=== PATIENT | male | born 1980 | race Caucasian/White ===

== ENCOUNTER 2017-08-09 06:33 | Day surgery (SDC) | payer BC ==
[~2017-08-09 06:33] MED LIST: Lactated Ringers 1,000 ML IV SCH; ceFAZolin 2 GM in Premix Bag 1 BAG IV SCH
[2017-08-09] MEDS ORDERED: Ondansetron 4 MG/2 ML SDV ONE (07:06)
[2017-08-09] MEDS ORDERED: Lidocaine 2% 5 ML SDV ONE (07:06)
[2017-08-09] MEDS ORDERED: Propofol 200 MG/20 ML SDV ONE (07:06)
[2017-08-09] MEDS ORDERED: fentaNYL 250 MCG/5 ML SDV ONE (07:07)
[2017-08-09] MEDS ORDERED: Midazolam 1 MG/ML 2 ML SDV ONE (07:07)
--- NOTE | 2017-08-09 07:18 | PCM.PREANE ---
Preanesthetic Assessment - Anesthesia/Transfusion/Family Hx Anesthesia History: Prior Anesthesia Without Reaction Family History of Anesthesia Reaction: No Transfusion History: No Prior Transfusion(s) - Review of Systems General: No Symptoms Pulmonary: No Symptoms Cardiovascular: No Symptoms Gastrointestinal: No Symptoms Neurological: No Symptoms Other: Reports: None - Physical Assessment NPO Status Date: 08/08/17 O2 Sat by Pulse Oximetry: 97 Respiratory Rate: 16 Vital Signs: Last Vital Signs Temp 36.2 C 08/09/17 06:42 Pulse 79 08/09/17 06:42 Resp 16 08/09/17 06:42 BP 141/82 H 08/09/17 06:42 Pulse Ox 97 08/09/17 06:42 Height: 1.78 m Weight: 79.379 kg ASA Class: 1 Mental Status: Alert & Oriented x3 Airway Class: Mallampati = 1 Dentition: Reports: Normal Dentition ROM/Head Extension: Full Lungs: Clear to Auscultation, Normal Respiratory Effort Cardiovascular: Regular Rate, Regular Rhythm - Allergies Allergies/Adverse Reactions: Allergies Allergy/AdvReac Type Severity Reaction Status Date / Time bee venom protein (honey bee) Allergy Other Verified 08/05/17 10:19 - Acknowledgements Anesthesia Type Planned: General Anesthesia Pt an Appropriate Candidate for the Planned Anesthesia: Yes Alternatives and Risks of Anesthesia Discussed w Pt/Guardian: Yes Pt/Guardian Understands and Agrees with Anesthesia Plan: Yes PreAnesthesia Questionnaire - Past Health History Medical/Surgical History: Denies Medical/Surgical History Other HEENT History: wears glasses Gastrointestinal History: Reports: GERD - Past Surgical History HEENT Surgical History: Reports: Oral Surgery Other HEENT Surgeries/Procedures: wisdom teeth removed - SUBSTANCE USE Smoking Status *Q: Never Smoker Days Per Week of Alcohol Use: 2 Number of Drinks Per Day: 2 Total Drinks Per Week: 4 Recreational Drug Use History: No - HOME MEDS Home Medications: Home Meds EPINEPHrine [Epipen 2-Ben] 1 dose IM ASDIRECTED PRN 08/05/17 [History] Famotidine [Pepcid] 20 - 40 mg PO DAILY PRN 08/05/17 [History] Ibuprofen 8,020 mg PO Q6H PRN 08/05/17 [History] - CURRENT (IN HOUSE) MEDS Current Meds: Current Medications Hydrocodone Bitart/Acetaminophen ([place] 325-5 Mg) 1 - 2 tab PO Q4H PRN PRN Reason: Pain Cefazolin Sodium/Dextrose 2 gm (/ Premix) 50 mls @ 100 mls/hr IV ONCALL [facility] Lactated Ringer's (Ringers, Lactated) 1,000 mls @ 100 mls/hr IV ASDIRECTED [facility] Last Admin: 08/09/17 07:00 Dose: 100 mls/hr Discontinued Medications Fentanyl (Sublimaze) Confirm Administered Dose 250 mcg .ROUTE .STK-MED ONE Stop: 08/09/17 07:08 Lidocaine (Xylocaine-Mpf 2%) Confirm Administered Dose 5 ml .ROUTE .STK-MED ONE Stop: 08/09/17 07:07 Midazolam HCl (Versed 1 Mg/Ml) Confirm Administered Dose 2 mg .ROUTE .STK-MED ONE Stop: 08/09/17 07:08 Ondansetron HCl (Zofran) Confirm Administered Dose 4 mg .ROUTE .STK-MED ONE Stop: 08/09/17 07:07 Propofol (Diprivan 20 Ml) Confirm Administered Dose 200 mg .ROUTE .STK-MED ONE Stop: 08/09/17 07:07
[2017-08-09] MEDS ORDERED: ceFAZolin 1 GM Vial ONE (07:22)
[2017-08-09] MEDS ORDERED: Sodium Chloride 0.9% 20 ML ONE (07:22)
[2017-08-09] MEDS ORDERED: Lidocaine 1% 20 ML MDV ONE (07:37)
[2017-08-09] MEDS ORDERED: Acetaminophen/HYDROcodone 325-5 MG Tab PO PRN (08:00)
[2017-08-09] MEDS ORDERED: Dexamethasone 4 MG/ML 5 ML MDV ONE (08:31)
[2017-08-09] MEDS ORDERED: Ketorolac 30 MG/ML SDV ONE (08:38)
[2017-08-09] MEDS ORDERED: fentaNYL 100 MCG/2 ML SDV IVPUSH PRN (08:43)
--- NOTE | 2017-08-09 08:58 | PCM.OPNOTE ---
- General Post-Op/Procedure Note Date of Surgery/Procedure: 08/09/17 Operative Procedure(s): R knee scope with chondroplasty of PFJ Post-Op Diagnosis: R knee DJD Anesthesia Technique: General LMA Primary Surgeon: Theresa Bundy Supervisor [employer] Placing: Hoem Cowan in mLs: 5 Condition: Good Free Text/Narrative:: tt=15 min #[id number]
--- NOTE | 2017-08-09 09:46 | PCM.POSTAN ---
POST ANESTHESIA ASSESSMENT - MENTAL STATUS Mental Status: Alert, Oriented - RESPIRATORY Respiratory Status: Respiratory Rate WNL, Airway Patent, O2 Saturation Stable - CARDIOVASCULAR CV Status: Pulse Rate WNL, Blood Pressure Stable - GASTROINTESTINAL GI Status: No Symptoms - POST OP HYDRATION Hydration Status: Adequate & Stable
[2017-08-09 10:16] VITALS: BP 124/78
--- NOTE | 2017-08-09 11:07 | PCM48HPAN ---
Post Anesthesia Note - EVALUATION WITHIN 48HRS OF ANESTHETIC Vital Signs in Normal Range: Yes Patient Participated in Evaluation: Yes Respiratory Function Stable: Yes Airway Patent: Yes Cardiovascular Function Stable: Yes Hydration Status Stable: Yes Pain Control Satisfactory: Yes Nausea and Vomiting Control Satisfactory: Yes Mental Status Recovered: Yes
--- NOTE | 2017-08-09 14:41 | OR ---
SURGEON: Theresa Bundy MD DATE OF PROCEDURE: 08/09/2017 PREOPERATIVE DIAGNOSIS: Right knee pain. POSTOPERATIVE DIAGNOSIS: Degenerative joint disease, right knee. PROCEDURE PERFORMED: Right knee arthroscopy with chondroplasty of the patellofemoral joint. [employer] MECH[employer]IC: Home Cowan PA-C. ANESTHESIA: General. ESTIMATED BLOOD LOSS: 5 mL. TOURNIQUET TIME: 15 minutes. COMPLICATIONS: None. DVT PROPHYLAXIS: Not indicated. IMPLANTS USED: None. BRIEF HISTORY: Brice is a 37-year-old male, who has had complaint of progressive right knee pain. He cannot recall a specific injury. He did respond to a diagnostic/therapeutic injection which gave him good short-term relief. His pain has since recurred. Due to his lack of response to conservative treatment, I did recommend surgical intervention. The risks and goals of procedure were discussed with the patient and were documented preoperatively. He agreed to proceed. DESCRIPTION OF PROCEDURE: The patient was properly identified and brought to the operating room. He was transferred from the OR cart and placed on the operating room table in supine position. General anesthesia was administered. After adequate anesthesia was obtained, a well-padded tourniquet was applied to the right lower extremity. The right lower extremity was then prepped in standard fashion using ChloraPrep solution. It was then sterilely draped. A time-out was performed to ensure correct site and procedure. Preoperative antibiotics were given. The surgical site had been marked preoperatively. An Esmarch was used to exsanguinate the right lower extremity and the tourniquet was inflated to 250 mmHg. A lateral portal arthrotomy was established. Blunt trocar and cannula were introduced into the suprapatellar pouch. Camera, inflow, and outflow were assembled. The suprapatellar pouch showed no signs of synovitis. The patellofemoral joint was visualized. He had a linear fissure that appeared to be central on the patella. The trochlea was also inspected, which showed a similar linear finding. The patella appeared to track centrally. I then extended down the lateral and medial gutter. No loose bodies were identified. I then entered the medial compartment. A medial portal arthrotomy was established. A blunt probe was inserted. The meniscus was extensively probed. It was found to be stable. The joint surfaces showed grade 1 chondromalacia along the medial tibial plateau. No degenerative findings were noted along the medial femoral condyle. I then entered the notch. Both the ACL and PCL were visualized and probed and found to be intact. I finally entered the lateral compartment. The lateral tibial plateau showed some softening consistent with grade 1 chondromalacia. The lateral femoral condyle showed no degenerative findings. The meniscus was extensively probed and found to be stable. I then re-entered the patellofemoral joint. The fissure was probed on the undersurface of the patella. It appeared to be loose. A 4.0 mm shaver was then used to gently debride the fissure to a stable remnant. It was again probed and found to be stable. The trochlea was also inspected. There was a small loose flap distally along the trochlea. This was also debrided to a stable remnant. Instruments were then removed from the knee. The portal sites were closed with 3-0 nylon. Lidocaine 1% was injected along the portal tracts. Xeroform gauze was placed over the wound and a bulky dressing was applied. The tourniquet was then deflated. He was awakened from his anesthetic and transferred back to the operating room cart. He was brought to recovery room in stable condition. All needle and sponge counts were correct. Prior to performing the surgery, I did obtain a knee aspirate. Betadine swabs were used to prep an area over the superolateral aspect of the patella. A 19- gauge needle was then introduced into the knee joint. I was able to aspirate approximately 2 mL of straw-colored fluid. I did insert additional sterile saline and this was again aspirated. There was no evidence of infection clinically or by the appearance of the synovial fluid. The synovial fluid was sent for cell count and crystals. KALI / DARWIN /[id number]
== END 2017-08-09 10:33 | disposition home or self-care (01) ==
LOC: MW.SDS 06:33
PROVIDERS: ATTEND Orthopaedic Surgery
DX: M22.41 Chondromalacia patellae, right knee (principal); M17.11 Unilateral primary osteoarthritis, right knee; Z91.030 Bee allergy status; Z98.890 Other specified postprocedural states
CPT/HCPCS: 29877; 88304; 89050; 89060; J0690; J1100; J1885; J2250; J2405; J3010; J7120; 01400; J2704

== ENCOUNTER 2018-01-26 12:46 | Day surgery (SDC) | payer BC ==
[~2018-01-26 12:46] MED LIST changes: +Sodium Chloride 0.9% 10 ML Syringe FLUSH PRN; +Sodium Chloride 0.9% 2.5 ML Syringe FLUSH PRN; -ceFAZolin 2 GM in Premix Bag 1 BAG IV SCH
[2018-01-26] MEDS ORDERED: fentaNYL 100 MCG/2 ML SDV ONE (13:26)
[2018-01-26] MEDS ORDERED: Midazolam 1 MG/ML 2 ML SDV ONE (13:26)
[2018-01-26] MEDS ORDERED: Propofol 200 MG/20 ML SDV ONE (13:26)
[2018-01-26] MEDS ORDERED: Lidocaine 2% 5 ML SDV ONE (13:26)
--- NOTE | 2018-01-26 14:09 | PCM.PREANE ---
Preanesthetic Assessment - Procedure Proposed Procedure: EGD with Bx - Anesthesia/Transfusion/Family Hx Anesthesia History: Prior Anesthesia Without Reaction Family History of Anesthesia Reaction: No Transfusion History: No Prior Transfusion(s) Intubation History: Unknown - Review of Systems General: No Symptoms Pulmonary: No Symptoms Cardiovascular: No Symptoms Gastrointestinal: Other (GERD) Neurological: No Symptoms Other: Reports: None - Physical Assessment NPO Status Date: 01/26/18 NPO Status Time: 07:00 O2 Sat by Pulse Oximetry: 99 Respiratory Rate: 16 Vital Signs: Last Vital Signs Temp 97.7 F 01/26/18 13:19 Pulse 63 01/26/18 13:19 Resp 16 01/26/18 13:19 BP 140/85 01/26/18 13:19 Pulse Ox 99 01/26/18 13:19 Height: 5 ft 10 in Weight: 175 lb ASA Class: 2 Mental Status: Alert & Oriented x3 Airway Class: Mallampati = 2 Dentition: Reports: Normal Dentition Thyro-Mental Finger Breadths: 3 Mouth Opening Finger Breadths: 3 ROM/Head Extension: Full Lungs: Clear to Auscultation, Normal Respiratory Effort Cardiovascular: Regular Rate, Regular Rhythm - Allergies Allergies/Adverse Reactions: Allergies Allergy/AdvReac Type Severity Reaction Status Date / Time bee venom protein (honey bee) Allergy Other Verified 01/24/18 08:46 - Blood Blood Available: No Product(s) Available: None - Anesthesia Plan Free Text/Narrative:: MAC Pre-Op Medication Ordered: None - Acknowledgements Anesthesia Type Planned: MAC Pt an Appropriate Candidate for the Planned Anesthesia: Yes Alternatives and Risks of Anesthesia Discussed w Pt/Guardian: Yes Pt/Guardian Understands and Agrees with Anesthesia Plan: Yes PreAnesthesia Questionnaire - Past Health History Medical/Surgical History: Denies Medical/Surgical History Other HEENT History: wears glasses/contacts Cardiovascular History: Reports: Other (See Below) Other Cardiovascular History: takes Ramapril for "pre-hypertension" - EKG with slight L ventricular hypertrophy Gastrointestinal History: Reports: GERD Neurological History: Reports: Other (See Below) Other Neuro History: hx of motion sickness - Past Surgical History HEENT Surgical History: Reports: Oral Surgery Other HEENT Surgeries/Procedures: wisdom teeth Musculoskeletal Surgical History: Reports: Arthroscopic Knee - SUBSTANCE USE Smoking Status *Q: Never Smoker Days Per Week of Alcohol Use: 2 Number of Drinks Per Day: 2 Total Drinks Per Week: 4 Recreational Drug Use History: No - HOME MEDS Home Medications: Home Meds EPINEPHrine [Epipen 2-Ben] 1 dose IM ASDIRECTED PRN 08/05/17 [History] Ibuprofen 800 mg PO Q6H PRN 08/05/17 [History] Pantoprazole Sodium 40 mg PO DAILY 01/24/18 [History] Ramipril 2.5 mg PO DAILY 01/24/18 [History] Sucralfate 1 gm PO QID 01/24/18 [History] - CURRENT (IN HOUSE) MEDS Current Meds: Current Medications Lactated Ringer's (Ringers, Lactated) 1,000 mls @ 125 mls/hr IV ASDIRECTED [facility] Last Admin: 01/26/18 13:20 Dose: 125 mls/hr Sodium Chloride (Saline Flush) 10 ml FLUSH ASDIRECTED PRN PRN Reason: Keep Vein Open Sodium Chloride (Saline Flush) 2.5 ml FLUSH ASDIRECTED PRN PRN Reason: Keep Vein Open Sodium Chloride (Saline Flush) 10 ml FLUSH ASDIRECTED PRN PRN Reason: Keep Vein Open Sodium Chloride (Saline Flush) 2.5 ml FLUSH ASDIRECTED PRN PRN Reason: Keep Vein Open Discontinued Medications Fentanyl (Sublimaze) Confirm Administered Dose 100 mcg .ROUTE .STK-MED ONE Stop: 01/26/18 13:27 Lidocaine (Xylocaine-Mpf 2%) Confirm Administered Dose 5 ml .ROUTE .STK-MED ONE Stop: 01/26/18 13:27 Midazolam HCl (Versed 1 Mg/Ml) Confirm Administered Dose 2 mg .ROUTE .STK-MED ONE Stop: 01/26/18 13:27 Propofol (Diprivan 20 Ml) Confirm Administered Dose 400 mg .ROUTE .STK-MED ONE Stop: 01/26/18 13:27
--- NOTE | 2018-01-26 14:50 | PCM.POSTAN ---
POST ANESTHESIA ASSESSMENT - MENTAL STATUS Mental Status: Alert, Oriented - VITAL SIGNS Pulse Rate: 83 SaO2: 96 Resp Rate: 14 Blood Pressure: 115/64 - RESPIRATORY Respiratory Status: Respiratory Rate WNL, Airway Patent, O2 Saturation Stable - CARDIOVASCULAR CV Status: Pulse Rate WNL, Blood Pressure Stable - GASTROINTESTINAL GI Status: No Symptoms - PAIN Pain Score: 0 - POST OP HYDRATION Hydration Status: Adequate & Stable - OBSERVATIONS Free Text/Narrative:: Pt awake and stable with no reported pain or nausea.
--- NOTE | 2018-01-26 15:01 | PCM.OPNOTE ---
- General Post-Op/Procedure Note Date of Surgery/Procedure: 01/26/18 Operative Procedure(s): Diagnostic EGD and biopsy Findings: Plaque like fundus lesion along greater curvature. Hyperplastic polyps in body and fundus. Pre Op Diagnosis: Heartburn Post-Op Diagnosis: Hyperplastic gastric polyps, fundus lesion Anesthesia Technique: [facility] Primary Surgeon: Sandra Lowry Condition: Good Free Text/Narrative:: Intake & Output 01/26/18 01/26/18 01/26/18 06:59 14:59 22:59 Intake Total 900 Balance 900
--- NOTE | 2018-01-26 15:09 | PCM48HPAN ---
Post Anesthesia Note - EVALUATION WITHIN 48HRS OF ANESTHETIC Vital Signs in Normal Range: Yes Patient Participated in Evaluation: Yes Respiratory Function Stable: Yes Airway Patent: Yes Cardiovascular Function Stable: Yes Hydration Status Stable: Yes Pain Control Satisfactory: Yes Nausea and Vomiting Control Satisfactory: Yes Mental Status Recovered: Yes Pulse Rate: 83 Resp Rate: 10 Blood Pressure: 115/64
[2018-01-26 15:15] VITALS: BP 137/77
--- NOTE | 2018-01-26 16:36 | OR ---
SURGEON: TORI RONDON MD DATE OF PROCEDURE: 01/26/2018 PREOPERATIVE DIAGNOSIS: Heartburn. POSTOPERATIVE DIAGNOSES: 1. Hyperplastic polyps of the stomach. 2. Lesion of gastric fundus. PROCEDURE PERFORMED: Diagnostic EGD with biopsies. ANESTHESIA: MAC. EXTENT OF EXAM: To the second portion of duodenum. INSTRUMENT USED: Olympus endoscope. PREPARATION: Good. LIMITATIONS: None. INDICATION: The patient is a 38-year-old male, who suffered from long-term heartburn. Recently, he had to switch to a PPI and took sucralfate to relieve his symptoms. A recent H. pylori antigen test was negative. He has never had a diagnostic EGD. We discussed the procedure, expected perioperative course, and risks including bleeding or perforation. The patient verbalized understanding and wishes to proceed. PROCEDURE IN DETAIL: The patient was brought into the endoscopy suite and placed in a beach chair position. A time-out was completed verifying the patient's name, age, date of , allergies, and procedure to be performed. A bite block was placed in the patient's mouth and monitored anesthesia care was induced. Continuous oxygen was provided via nasal cannula throughout the procedure. After adequate sedation was achieved, a well lubricated endoscope was placed in the patient's mouth and advanced under direct visualization to the second portion of duodenum. This appeared normal and a photograph was taken. The scope was then fully withdrawn while examining the color, texture, anatomy, and integrity of the mucosa of the upper GI tract. The patient's duodenal mucosa was normal appearing. The scope was brought into the stomach and a photograph was taken of the pylorus as well as the GE junction. Both of these appeared anatomically normal. The gastric body, and fundus had multiple less than 5 mm polyps located in them. These appeared to be hyperplastic. The largest of these was removed using a cold biopsy forceps, and then using a cold snare. Biopsies were taken of the gastric antrum, body, and fundus and sent for H. pylori testing and histologic review. Upon second retroflexion of my scope, I noticed a plaque- like area along the greater curvature in the fundus of the stomach. Biopsies of this area were taken. The scope was then brought into the distal esophagus. A photograph was taken of the GE junction. This appeared normal and a photograph was taken. The remainder of esophageal mucosa appeared normal with no evidence of inflammation or ulceration. The scope was then removed from the patient, and the procedure was terminated. The patient was taken to the PACU in stable condition. ENDOSCOPIC DIAGNOSES: 1. Hyperplastic gastric polyps. 2. Lesion of the gastric fundus. We will follow up with the patient in 2 weeks. SYDNI GRANADOS /[id number]
== END 2018-01-26 15:20 | disposition home or self-care (01) ==
LOC: MW.SDS 12:46
PROVIDERS: ATTEND Surgery
DX: K31.7 Polyp of stomach and duodenum (principal); K29.50 Unspecified chronic gastritis without bleeding; K31.9 Disease of stomach and duodenum, unspecified; D22.9 Melanocytic nevi, unspecified; I51.7 Cardiomegaly; M22.41 Chondromalacia patellae, right knee; L98.9 Disorder of the skin and subcutaneous tissue, unspecified; R03.0 Elevated blood-pressure reading, without diagnosis of hypertension; Z79.899 Other long term (current) drug therapy; Z91.038 Other insect allergy status
CPT/HCPCS: 43239; 43251; 88305; 88312; J2250; J3010; J7120; J2704